=== PATIENT | male | born 1960 | race Caucasian/White ===

== ENCOUNTER 2020-07-04 17:14 | Emergency (ER) | payer OTHER ==
[~2020-07-04] VITALS: Ht 167.6 cm; Wt 90.7 kg
[~2020-07-04 17:14] MED LIST: Align4 MG PO; METPRE4DP PO; Oxycodone HCl20 M1 PO; Pyridium100 MG PO; TAMS.4ER PO
[2020-07-04] MEDS ORDERED: ACETAMINOPHEN500 MG PO (19:15)
[2020-07-04] MEDS ORDERED: Valium5 MG PO (19:15)
[2020-07-04] MEDS ORDERED: LIDO700A20 TOP (19:15)
[2020-07-04] MEDS ORDERED: IBUP600 PO (19:15)
== END 2020-07-04 19:28 | disposition home or self-care (01) ==
LOC: ER 17:14
DX: M54.5 Low back pain (principal); G89.29 Other chronic pain
CPT/HCPCS: 99283; A9270

== ENCOUNTER 2020-07-06 09:47 | Emergency (ER) | payer OTHER ==
[~2020-07-06] VITALS: Ht 167.6 cm; Wt 90.7 kg
[~2020-07-06 09:47] MED LIST changes: +ACETAMINOPHEN500 MG PO; +IBUP600 PO; +LIDO700A20 TOP; +Valium5 MG PO
[2020-07-06] MEDS ORDERED: Prednisone20 MG PO (11:42)
== END 2020-07-06 12:50 | disposition home or self-care (01) ==
LOC: ER 09:47
DX: M54.5 Low back pain (principal); G89.29 Other chronic pain; Z79.899 Other long term (current) drug therapy
CPT/HCPCS: 73502; 96372; 99283-25; J1885; J7512

== ENCOUNTER → 2021-03-06 | Outpatient (CLI) | payer OTHER ==
[~2021-03-06] MED LIST changes: +Prednisone20 MG PO
[2021-03-06 17:49] LABS: Anion Gap 4 mmol/L (6-16); Blood Urea Nitrogen 18 mg/dL (8-24); Bun/Creatinine Ratio 24.1 (12.0-20.0); CO2, Blood 28 mmol/L (21-32); Calcium, Blood 9.2 mg/dL (8.5-10.1); Chloride, Blood 106 mmol/L (98-108); Creatinine, Blood 0.75 mg/dL (0.60-1.20); Glomerular Filtration Rate >60 (60-); Glucose, Blood 103 mg/dL (70-99); Potassium, Blood 4.1 mmol/L (3.5-5.5); Sodium, Blood 138 mmol/L (136-145)
== END | disposition home or self-care (01) ==
LOC: LAB SHORT 16:05
PROVIDERS: Family Medicine
DX: M53.3 Sacrococcygeal disorders, not elsewhere classified (principal)
CPT/HCPCS: 80048

== ENCOUNTER 2021-05-22 10:17 | Day surgery (SDC) | payer OTHER ==
[~2021-05-22] VITALS: Ht 167.6 cm; Wt 95.8 kg
== END 2021-05-22 14:10 | disposition home or self-care (01) ==
LOC: ORSCSDS 10:17
PROVIDERS: Internal Medicine Gastroenterology
PROC: 0DJD8ZZ Inspection of Lower Intestinal Tract, Via Natural or Artificial Opening Endoscopic (ICD-10-PCS; principal; 2021-05-22 11:30)
PROC: 0DB78ZX Excision of Stomach, Pylorus, Via Natural or Artificial Opening Endoscopic, Diagnostic (ICD-10-PCS; principal; 2021-05-22 11:30)
PROC: 0D757ZZ Dilation of Esophagus, Via Natural or Artificial Opening (ICD-10-PCS; principal; 2021-05-22 11:30)
DX: K31.A0 Gastric intestinal metaplasia, unspecified (principal); K29.70 Gastritis, unspecified, without bleeding; R13.14 Dysphagia, pharyngoesophageal phase; Z12.11 Encounter for screening for malignant neoplasm of colon; Z86.010 Personal history of colon polyps; K57.30 Diverticulosis of large intestine without perforation or abscess without bleeding; E03.9 Hypothyroidism, unspecified; I10 Essential (primary) hypertension; Z79.899 Other long term (current) drug therapy
CPT/HCPCS: 88305; 88341; 88342; J2250; J2704; J7120

== ENCOUNTER 2022-07-01 10:50 | Day surgery (SDC) | payer OTHER ==
[~2022-07-01] VITALS: Ht 152.4 cm; Wt 96.6 kg
[~2022-07-01 10:50] MED LIST changes: +ATOR40TA PO; +Aspir 8181 MG PO; +METO25ER PO
--- NOTE | 2022-07-01 11:18 | NUR ---
PATIENT BROUGHT TO THE PRE OP AREA AND MET WITH DR. VELAZQUEZ AND PREPED FOR CORONARY ANDGIOGRAM.
--- NOTE | 2022-07-01 13:09 | NUR ---
ROSARIO ARRIVED BACK FROM THE [facility] AND PLACED ON THE MONITOR CALL LIGHT IN REACH AND LUNCH TRAY SERVED. FEEDING SELF. SBAR RECEIVED FROM DANELLE FIGUEROA. ORDERS REVIEWED FROM DR. VELAZQUEZ.
--- NOTE | 2022-07-01 15:09 | NUR ---
1445 TR BAND REMOVED AND SITE CLEANED, CLOTH DOT PLACED AND WHITE BOARD REPLACED TO THE RIGHT WRIST AND REVEIWED ALL DISCHARGE INSTRUCTIONS. OFF MONITOR AND PATIENT UP TO THE RESTROOM AND PIV FROM THE LEFT AC REMOVED. PRESSURE DRESSING APPLIED TO THE LEFT AC. PATIENT GIVEN COPIES OF DISCHARGE INSTRUCTIONS AND DISCHARGED HOME AMBULATORY WITH GIRLFRIEND MEASURER MACHINE.
--- NOTE | 2022-07-01 15:09 | NUR ---
1400 BEGAN TAKING AIR FROM THE TR BAND.
== END 2022-07-01 15:27 | disposition home or self-care (01) ==
LOC: MHTC 10:50
DX: R07.89 Other chest pain (principal); R06.02 Shortness of breath
CPT/HCPCS: 76937; 93458; 99152; 99153; C1769; C1887; C1894; J1644; J2250; J3010; J7030; J7050; Q9967

== ENCOUNTER → 2024-02-03 | Outpatient (CLI) | payer OTHER ==
[2024-02-03 17:14] LABS: BASOPHILS ABSOLUTE AUTO 0.03 K/mm3 (0.00-0.23); BASOPHILS PERCENT AUTO 0 % (0-2); EOSINOPHILS ABSOLUTE AUTO 0.02 K/mm3 (0.00-0.68); EOSINOPHILS PERCENT AUTO 0 % (0-6); Hematocrit 46.3 % (37.0-53.0); Hemoglobin 15.6 g/dL (13.5-17.5); IMMATURE GRAN ABSOLUTE AUTO 0.03 K/mm3 (0.00-0.10); IMMATURE GRAN PERCENT AUTO 0 % (0-1); LYMPHOCYTES ABSOLUTE AUTO 2.22 K/mm3 (0.84-5.20); LYMPHOCYTES PERCENT AUTO 25 % (21-46); MONOCYTES PERCENT AUTO 7 % (4-13); Mean Corpuscular HGB 31.2 pg (26.0-34.0); Mean Corpuscular HGB Conc 33.7 g/dL (31.5-36.5); Mean Corpuscular Volume 93 fL (80-100); Mean Platelet Volume 9.9 fL (9.1-12.4); NEUTROPHILS ABSOLUTE AUTO 5.85 K/mm3 (1.96-9.15); NEUTROPHILS PERCENT AUTO 67 % (41-73); Platelet Count 251 K/mm3 (150-400); RDW Standard Deviation 44.3 fL (35.1-46.3); White Blood Cell Count 8.75 K/mm3 (4.00-11.30)
[2024-02-03 18:00] LABS: Alanine Aminotransfer (ALT/SGP 59 U/L (12-78); Albumin, Blood 4.1 g/dL (3.4-5.0); Albumin/Globulin Ratio 1.1 (0.8-1.8); Alk Phos 85 U/L (50-136); Anion Gap 12 mmol/L (3-11); Aspartate Aminotrans (AST/SGOT 35 U/L (12-37); Bilirubin, Total 1.3 mg/dL (0.1-1.0); Blood Urea Nitrogen 18 mg/dL (8-24); Bun/Creatinine Ratio 19.9 (12.0-20.0); CHOL/HDL RATIO 2.2; CO2, Blood 24 mmol/L (21-32); Calcium, Blood 9.2 mg/dL (8.5-10.1); Chloride, Blood 106 mmol/L (98-108); Cholesterol 107 mg/dL (50-200); Globulin, Blood 3.7 g/dL (2.2-4.0); Glomerular Filtration Rate 96 (60-); Glucose, Blood 128 mg/dL (70-99); HDL Cholesterol 49 mg/dL (>39); LDL/HDL RATIO 0.9; Low Density Lipoprotein Chol 44 mg/dL (0-110); Potassium, Blood 3.9 mmol/L (3.5-5.5); Sodium, Blood 138 mmol/L (136-145); Total Protein, Blood 7.8 g/dL (6.4-8.2); Triglycerides 69 mg/dL (30-160); Very Low Density Lipoprot Chol 13 mg/dL (6-32)
[2024-02-03 18:06] LABS: Thyroid Stimulating Hormone 0.651 uIU/mL (0.360-4.800)
== END | disposition home or self-care (01) ==
LOC: LAB 15:36 → LAB SHORT 15:36
PROVIDERS: Family Medicine
DX: E78.5 Hyperlipidemia, unspecified (principal); I10 Essential (primary) hypertension
CPT/HCPCS: 80053; 80061; 84443; 85025